=== PATIENT | male | born 2000 | race African-American/Black ===

== ENCOUNTER 2018-04-27 11:11 | Emergency (ER) | payer OTHER ==
[2018-04-27 11:17] VITALS: BP 117/66; PULSE 88; TEMP 98; BMI 28.1
--- NOTE | 2018-04-27 11:27 | PDOC ---
History of Present Illness - General Chief Complaint: Injury Stated Complaint: CUT FINGER Time Seen by Provider: 04/27/18 11:26 History Source: Patient Exam Limitations: No Limitations - History of Present Illness Initial Comments: 04/27/18 12:14 The patient is a 18-year-old male medical history who presents to the emergency department today for laceration to his foot. Patient states that he was in the shower last night he cut it on the side of shower. This happened at 11 PM last night. He states that he wanted to go to bed so he covered the wound presented to the ER today. Wound open for approximately 12 hours. He states he is up-to- date on his vaccinations including his tetanus shot. Denies fevers, chills, numbness and tingling and weakness to the affected extremities. Past History - Travel Traveled outside of the country in the last 30 days: No Close contact w/someone who was outside of country & ill: No - Past Medical History Allergies/Adverse Reactions: Allergies Allergy/AdvReac Type Severity Reaction Status Date / Time No Known Allergies Allergy Verified 04/27/18 11:17 COPD: No - Suicide/Smoking/Psychosocial Hx Smoking History: Never smoked Information on smoking cessation initiated: No Hx Alcohol Use: No Drug/Substance Use Hx: No Review of Systems - Review of Systems Able to Perform ROS?: Yes Comments:: 04/27/18 12:11 CONSTITUTIONAL: Absent: fever, chills, diaphoresis, generalized weakness, malaise, loss of appetite HEENT: Absent: rhinorrhea, nasal congestion, throat pain, throat swelling, difficulty swallowing, mouth swelling, ear pain, eye pain, visual Changes CARDIOVASCULAR: Absent: chest pain, loss of consciousness, palpitations, irregular heart rate, peripheral edema RESPIRATORY: Absent: cough, shortness of breath, dyspnea with exertion, orthopnea, wheezing, stridor, hemoptysis GASTROINTESTINAL: Absent: abdominal pain, abdominal distension, nausea, vomiting, diarrhea, constipation, melena, hematochezia GENITOURINARY: Absent: dysuria, frequency, urgency, hesitancy, hematuria, flank pain, genital pain MUSCULOSKELETAL: Absent: myalgia, arthralgia, joint swelling SKIN: Present: laceration to R foot Absent: rash, itching, pallor HEMATOLOGIC/IMMUNOLOGIC: Absent: easy bleeding, easy bruising, lymphadenopathy, frequent infections ENDOCRINE: Absent: unexplained weight gain, unexplained weight loss, heat intolerance, cold intolerance NEUROLOGIC: Absent: headache, focal weakness or paresthesias, dizziness, unsteady gait, seizure, mental status changes, bladder or bowel incontinence PSYCHIATRIC: Absent: anxiety, depression, suicidal or homicidal ideation, hallucinations. Is the patient limited Kazakh proficient: No *Physical Exam - Vital Signs Last Vital Signs Temp Pulse Resp BP Pulse Ox 98 F 88 19 117/66 99 04/27/18 11:15 04/27/18 11:15 04/27/18 11:15 04/27/18 11:15 04/27/18 11:15 - Physical Exam Comments: 04/27/18 12:11 GENERAL: Well developed, well nourished. Awake and alert. No acute distress. MUSCULOSKELETAL Normal range of motion at all joints. No bony deformities or tenderness. No CVA tenderness. EXTREMITIES: No cyanosis. No clubbing. No edema. No calf tenderness. SKIN: 2cm elliptical laceration to the top of the R lateral foot. Warm and dry. Normal capillary refill. No rashes. No jaundice. NEUROLOGICAL: Alert, awake, appropriate. Cranial nerves 2-12 intact. No deficits to light touch and temperature in face, upper extremities and lower extremities. No motor deficits in the in face, upper extremities and lower extremities. Normoreflexic in the upper and lower extremities. Normal speech. Toes are down- going bilaterally. Gait is normal without ataxia. PSYCHIATRIC: Cooperative. Good eye contact. Appropriate mood and affect. Moderate Sedation - Procedure Monitoring Vital Signs: Procedure Monitoring Vital Signs Temperature 98 F 04/27/18 11:15 Pulse Rate 88 04/27/18 11:15 Respiratory Rate 19 04/27/18 11:15 Blood Pressure 117/66 04/27/18 11:15 O2 Sat by Pulse Oximetry (%) 99 04/27/18 11:15 Procedures - Laceration/Wound Repair Right Lateral Foot Wound Length: to 2.5 cm Wound Explored: clean, no foreign body present Wound's Depth, Shape: superficial (elliptical) Irrigated w/ Saline: Yes Betadine Prep: Yes Anesthesia: 1% Lidocaine Amount of Anesthetic (ccs): 4 Wound Repaired With: Sutures Suture Size/Type: 4:0 Number of Sutures: 5 (simple interrupted) Sterile Dressing Applied: Yes Medical Decision Making - Medical Decision Making 04/27/18 12:17 The patient is a 18-year-old male with no past medical history who presents to the ER for laceration to the top of his right lateral foot. X-ray obtained. No broken bones in the right foot at this time. Wound cleaned under high pressure with normal saline. No foreign bodies identified. Laceration closed with sutures. Please see procedure note. DC home with laceration care instructions; patient instructed to return to the ER in 7-10 days to have the stitches removed. I discussed the physical exam findings, ancillary test results and final diagnoses with the patient. I answered all of the patient's questions. The patient was satisfied with the care received and felt comfortable with the discharge plan and treatment plan. The Patient agrees to follow up with the primary care physician/specialist within 24-72 hours. Return precautions were given. *DC/Admit/Observation/Transfer Diagnosis at time of Disposition: Laceration - Discharge Dispostion Disposition: HOME Condition at time of disposition: Stable Decision to Admit order: No - Referrals Referrals: Dimas Red MD [Staff Physician] - - Patient Instructions Printed Discharge Instructions: DI for Laceration Repair -- Simple Additional Instructions: You had your cut fixed today with stitches. Please return in 9 days to have your stitches removed. Avoid soaking the foot. Keep it dry when showering. Please keep the area clean and pat dry. You may use bacitracin once a day. You may take Tylenol or Motrin as needed for pain. Return to the emergency department sooner if you have area of redness around the site, purulent drainage, fevers, or have any changes in your symptoms. - Post Discharge Activity Forms/Work/School Notes: Back to School
== END 2018-04-27 12:32 | disposition home or self-care (01) ==
LOC: JERFT 11:11
PROC: 0HQMXZZ Repair Right Foot Skin, External Approach (ICD-10-PCS; principal; 2018-04-27)
DX: S91.311A Laceration without foreign body, right foot, initial encounter (principal); W22.8XXA Striking against or struck by other objects, initial encounter; Y93.E1 Activity, personal bathing and showering; Y92.012 Bathroom of single-family (private) house as the place of occurrence of the external cause; Y99.8 Other external cause status
CPT/HCPCS: 73630-TC-RT-FY; 99281-25

== ENCOUNTER 2018-05-08 12:45 | Emergency (ER) | payer OTHER ==
--- NOTE | 2018-05-08 13:05 | PDOC ---
Rapid Medical Evaluation Time Seen by Provider: 05/08/18 13:03 Medical Evaluation: Allergies Allergy/AdvReac Type Severity Reaction Status Date / Time No Known Allergies Allergy Verified 04/27/18 11:17 05/08/18 13:05 I have performed a brief in-person evaluation of this patient The patient present with a chief complaint of: stitiches removal Pertinent physical exam findings: NAD even and unlabored breathing I have ordered the following: stitiches removal The patient will proceed to the ED for further evaluation.
[2018-05-08 13:07] VITALS: BP 117/67; PULSE 93; TEMP 98.5; BMI 34.6
--- NOTE | 2018-05-08 14:03 | PDOC ---
History of Present Illness - General Chief Complaint: Suture/Staple Removal(Here) Stated Complaint: STITCHES REMOVED Time Seen by Provider: 05/08/18 13:03 - History of Present Illness Initial Comments: 05/08/18 14:00 18-year-old male presents for suture removal right foot from sutures that were placed 10 days ago. He hasn't had no sequelae since placement of sutures. Past History - Past Medical History Allergies/Adverse Reactions: Allergies Allergy/AdvReac Type Severity Reaction Status Date / Time No Known Allergies Allergy Verified 04/27/18 11:17 Home Medications: Ambulatory Orders NK [No Known Home Medication] 05/08/18 COPD: No - Suicide/Smoking/Psychosocial Hx Smoking History: Never smoked Have you smoked in the past 12 months: No Information on smoking cessation initiated: No Hx Alcohol Use: No Drug/Substance Use Hx: No Review of Systems - Review of Systems Integumentary: Yes: See HPI *Physical Exam - Vital Signs Last Vital Signs Temp Pulse Resp BP Pulse Ox 98.5 F 93 H 20 117/67 99 05/08/18 13:04 05/08/18 13:04 05/08/18 13:04 05/08/18 13:04 05/08/18 13:04 - Physical Exam Comments: 05/08/18 14:01 Right foot skin color and temperature are normal. The wound on the right foot is well-healed. [address] eschar has formed no indication of infection. No erythema normal skin color and temperature. Again wound is well- healed. No gross sensorimotor deficits. Medical Decision Making - Medical Decision Making 05/08/18 14:01 Using a needle school bus driver and an 11 blade, 5 sutures were removed the right foot without complication *DC/Admit/Observation/Transfer Diagnosis at time of Disposition: Visit for suture removal - Discharge Dispostion Disposition: HOME Condition at time of disposition: Stable Decision to Admit order: No - Referrals Referrals: Shiv Bravo MD [Primary Care Provider] - - Patient Instructions Printed Discharge Instructions: DI for Suture Removal Additional Instructions: He may wash the area with soap and water and leave it open to air. Cover it with a Band-Aid if you're in a shoe or sneaker. Do not submerge the area in water no baths hot tubs or pools until the wound becomes a scar. Return to the emergency room for any further issues and follow-up with your primary care physician for wound management going forward if you need to. Return to the emergency room if there is any indication of infection such as redness pain swelling or drainage from the wound. - Post Discharge Activity
== END 2018-05-08 14:05 | disposition home or self-care (01) ==
LOC: JERFT 12:45
DX: Z48.817 Encounter for surgical aftercare following surgery on the skin and subcutaneous tissue (principal); Z48.02 Encounter for removal of sutures
CPT/HCPCS: 99281-25

== ENCOUNTER 2018-11-13 19:30 | Emergency (ER) | payer OTHER ==
[2018-11-13 19:36] VITALS: BP 131/74; PULSE 104; TEMP 97.9; BMI 33.8
--- NOTE | 2018-11-13 23:55 | PDOC ---
History of Present Illness - General Chief Complaint: Pain Stated Complaint: ABD PAIN Time Seen by Provider: 11/13/18 23:55 History Source: Patient - History of Present Illness Initial Comments: 11/13/18 23:59 18 year old male with epigastric pain since yesterday.denies nausea, vomiting, diarrhea. denies chest pain. patient reports that he has been eating spicy food. 11/14/18 00:05 Past History - Past Medical History Allergies/Adverse Reactions: Allergies Allergy/AdvReac Type Severity Reaction Status Date / Time No Known Allergies Allergy Verified 11/13/18 19:37 Home Medications: Ambulatory Orders NK [No Known Home Medication] 05/08/18 COPD: No - Psycho Social/Smoking Cessation Hx Smoking History: Never smoked Have you smoked in the past 12 months: No Hx Alcohol Use: No Drug/Substance Use Hx: No Review of Systems - Review of Systems Able to Perform ROS?: Yes Is the patient limited Chinese proficient: No Constitutional: No: Symptoms Reported, See HPI, Chills, Diaphoresis, Fever, Loss of Appetite, Malaise, Night Sweats, Weakness, Weight Stable, Unintentional Wgt. Loss, Unexplained wgt Loss, Other ABD/GI: Yes: Abdominal cramping (epigastric area). No: Nausea, Vomiting *Physical Exam - Vital Signs Last Vital Signs Temp Pulse Resp BP Pulse Ox 97.9 F 104 H 18 131/74 99 11/13/18 19:34 11/13/18 19:34 11/13/18 19:34 11/13/18 19:34 11/13/18 19:34 - Physical Exam General Appearance: Yes: Appropriately Dressed Respiratory/Chest: positive: Lungs Clear, Normal Breath Sounds Cardiovascular: positive: Regular Rhythm, Tachycardia Gastrointestinal/Abdominal: positive: Normal Bowel Sounds, Tender (epigastric are) Extremity: positive: Normal Capillary Refill, Normal Inspection, Normal Range of Motion Integumentary: positive: Normal Color, Dry, Warm Neurologic: positive: Fully Oriented, Alert ED Progress Note - Progress Note Progress Note: 11/14/18 00:03 A: gastritis P: maalox Discharge - Discharge Information Problems reviewed: Yes Clinical Impression/Diagnosis: Gastritis Qualifiers: Gastritis type: unspecified gastritis Chronicity: acute Gastritis bleeding: without bleeding Qualified Code(s): K29.00 - Acute gastritis without bleeding - Follow up/Referral Referrals: Shiv Bravo MD [Primary Care Provider] - Call tomorrow - Patient Discharge Instructions Patient Printed Discharge Instructions: [place] Diet Additional Instructions: avoid spicy food take pepcid as prescribed follow up with your doctor as soon as possible. - Post Discharge Activity Work/Back to School Note: Back to School
--- NOTE | 2018-11-13 23:59 | PDOC ---
*Physical Exam - Vital Signs Last Vital Signs Temp Pulse Resp BP Pulse Ox 97.9 F 104 H 18 131/74 99 11/13/18 19:34 11/13/18 19:34 11/13/18 19:34 11/13/18 19:34 11/13/18 19:34 Medical Decision Making - Medical Decision Making 11/13/18 23:59 Patient seen by the advanced practice provider under my direct supervision. Ancillary testing reviewed as necessary. I agree with plan as outlined by the advanced practice provider. Discharge - Discharge Information Problems reviewed: Yes Clinical Impression/Diagnosis: Gastritis Qualifiers: Gastritis type: unspecified gastritis Chronicity: acute Gastritis bleeding: without bleeding Qualified Code(s): K29.00 - Acute gastritis without bleeding - Follow up/Referral Referrals: Shiv Bravo MD [Primary Care Provider] - Call tomorrow - Patient Discharge Instructions Patient Printed Discharge Instructions: [place] Diet Additional Instructions: avoid spicy food take pepcid as prescribed follow up with your doctor as soon as possible. - Post Discharge Activity Work/Back to School Note: Back to School
[2018-11-14] MEDS ORDERED: MAG HYDROX/AL HYDROX/SIMETH 30 ML UNIT-DOSE CUP PO ONE
[2018-11-14] MEDS ORDERED: RANITIDINE HCL 150 MG TABLET (FP) PO ONE (00:04)
[2018-11-14] MEDS ORDERED: MAG HYDROX/AL HYDROX/SIMETH 30 ML UNIT-DOSE CUP ONE (00:58)
== END 2018-11-14 02:16 | disposition home or self-care (01) ==
LOC: JER 19:30
DX: K29.00 Acute gastritis without bleeding (principal)
CPT/HCPCS: 99282-25

== ENCOUNTER 2018-11-14 16:16 | Emergency (ER) | payer OTHER ==
--- NOTE | 2018-11-14 16:36 | PDOC ---
Rapid Medical Evaluation Time Seen by Provider: 11/14/18 16:31 Medical Evaluation: Allergies Allergy/AdvReac Type Severity Reaction Status Date / Time No Known Allergies Allergy Verified 11/13/18 19:37 11/14/18 16:31 I performed a brief in-person evaluation of this patient. Healthy 18-year-old male with epigastric/LUQ, loss of appetite pain since Tuesday. No nausea/vomiting/diarrhea/constipation. Seen in ED last night, given Pepcid/Maalox without relief. Now with fevers/chills, dysuria. No surgeries. Alert, oriented, no distress. LUQ tenderness. No tonsillar swelling/exudates. *Temp 101.3 I have ordered the following: CBC, CMP, lipase UA/culture Patient will proceed to the ED for further evaluation. Discharge Disposition - Diagnosis Fever, Abdominal pain - Referrals - Patient Instructions - Post Discharge Activity
[2018-11-14 16:37] VITALS: BMI 32.8
[2018-11-14] MEDS ORDERED: ACETAMINOPHEN 325 MG TABLET (FP) PO ONE (16:38)
[2018-11-14 17:38] LABS: BASO % 0.4 % (0-2.0); EOS % 0.2 % (0-4.5); HEMATOCRIT 44.3 % (35.4-49); HEMOGLOBIN 14.5 GM/dL (11.7-16.9); LYMPH % 11.3 % (8-40); MCH 30.3 pg (25.7-33.7); MCHC 32.8 g/dl (32.0-35.9); MEAN CELL VOLUME 92.3 fl (80-96); MEAN PLT VOLUME 7.6 fl (7.5-11.1); MONO % 9.8 % (3.8-10.2); NEUT % 78.3 % (42.8-82.8); PLATELET COUNT 352 K/MM3 (134-434); RDW 12.1 % (11.9-15.9); WHITE BLOOD COUNT 12.2 K/mm3 (4.0-10.0)
[2018-11-14 17:52] LABS: EPI CELLS 0.3 /HPF (0-5/HPF); HYALINE CASTS 2 /lpf (0-8); PH,URINE 6.5 (5.0-8.0); URINE APPEARANCE CLOUDY; URINE BACTERIA 5676.5 /hpf (NEGATIVE); URINE BILIRUBIN NEGATIVE (NEGATIVE); URINE COLOR YELLOW; URINE GLUCOSE (UA) NEGATIVE (NEGATIVE); URINE KETONE 1+ (NEGATIVE); URINE LEUK ESTERASE 3+ (NEGATIVE); URINE NITRITE NEGATIVE (NEGATIVE); URINE PROTEIN 1+ (NEGATIVE); URINE RBC 23 /hpf (0-4); URINE UROBILINOGEN 0.2 mg/dL (0.2-1.0); URINE WBC 335 /hpf (0-5)
[2018-11-14 17:58] LABS: ALBUMIN 3.8 g/dl (3.4-5.0); BILIRUBIN,TOTAL 1.1 mg/dL (0.2-1); CALCIUM 9.5 mg/dL (8.5-10.1); CREATININE 1.1 mg/dL (0.55-1.3); POTASSIUM 4.5 mmol/L (3.5-5.1); TOT PROT 8.2 g/dl (6.4-8.2)
[2018-11-14] MEDS ORDERED: ACETAMINOPHEN 1000 MG/100 ML VIAL (NON FORMULARY) IVPB ONE (18:06)
[2018-11-14] MEDS ORDERED: CEFTRIAXONE 1,000 MG in DEXTROSE 5%-WATER - 50 ML IVPB ONE (18:06)
--- NOTE | 2018-11-14 18:13 | PDOC ---
History of Present Illness - General Chief Complaint: Pain, Acute Stated Complaint: ABD PAIN Time Seen by Provider: 11/14/18 16:31 History Source: Patient Exam Limitations: No Limitations - History of Present Illness Initial Comments: 11/14/18 18:08 18 yo M no PMH presenting with abdominal pain and fever. Notably, patient was seen yesterday for abdominal pain, was afebrile at that time, treated for presumed gastritis and sent home. Developed fever this morning, 100.8 at home, 101.3 here. States that his symptoms first began on Tuesday. Specifically denies N/V, constipation/diarrhea. Does complain of stinging with urination and states that he has been peeing every 15 minutes or so. Denies flank pain or hematuria. Past History - Past Medical History Allergies/Adverse Reactions: Allergies Allergy/AdvReac Type Severity Reaction Status Date / Time No Known Allergies Allergy Verified 11/13/18 19:37 Home Medications: Ambulatory Orders Sulfamethoxazole/Trimethoprim [Bactrim Ds Tablet] 1 each PO BID 10 Days #20 tablet 11/14/18 COPD: No - Immunization History Immunization Up to Date: No - Psycho Social/Smoking Cessation Hx Smoking History: Never smoked Have you smoked in the past 12 months: No Information on smoking cessation initiated: No Hx Alcohol Use: No Drug/Substance Use Hx: No Review of Systems - Review of Systems Able to Perform ROS?: Yes Constitutional: Yes: Chills, Fever HEENTM: No: Recent change in vision, Hearing Loss, Difficulty Swallowing Respiratory: No: Cough, Orthopnea, Shortness of Breath Cardiac (ROS): No: Chest Pain, Irregular Heart Rate, Lightheadedness, Palpitations, Syncope, Chest Tightness ABD/GI: No: Abdominal Distended, Constipated, Diarrhea, Nausea, Vomiting : Yes: Burning, Frequency. No: Discharge, Flank Pain, Hematuria Musculoskeletal: No: Back Pain, Muscle Weakness Neurological: No: Headache, Numbness, Tingling *Physical Exam - Vital Signs Last Vital Signs Temp Pulse Resp BP Pulse Ox 101.3 F H 116 H 20 124/75 100 11/14/18 16:34 11/14/18 16:34 11/14/18 16:34 11/14/18 16:34 11/14/18 16:34 - Physical Exam Comments: 11/14/18 18:13 Gen: well-developed, appears distressed Neuro: AAOX4, CN II-XII intact, FTN intact HEENT: atraumatic, normocephalic Neck: trachea midline, supple CV: regular rhythm, tachycardic Pulm: CTA b/l, no wheezing Abd: soft, TTP in periumbilical region MSK: full ROM, pulses intact Extr: no edema, no deformities Skin: hot, dry ED Treatment Course - LABORATORY CBC & Chemistry Diagram: 11/14/18 17:08 11/14/18 17:08 - ADDITIONAL ORDERS Additional order review: Laboratory Results 11/14/18 11/14/18 17:08 17:08 Sodium 136 Potassium 4.5 Chloride 101 Carbon Dioxide 30 Anion Gap 5 L BUN 12.0 Creatinine 1.1 Est GFR (CKD-EPI)AfAm 111.41 Est GFR (CKD-EPI)NonAf 96.13 Random Glucose 87 Calcium 9.5 Total Bilirubin 1.1 H AST 25 ALT 43 Alkaline Phosphatase 104 Total Protein 8.2 Albumin 3.8 Lipase 78 Urine Color Yellow Urine Appearance Cloudy Urine pH 6.5 Ur Specific [place] 1.013 Urine Protein 1+ H Urine Glucose (UA) Negative Urine Ketones 1+ H Urine Blood 2+ H Urine Nitrite Negative Urine Bilirubin Negative Urine Urobilinogen 0.2 Ur Leukocyte Esterase 3+ H Urine WBC (Auto) 335 Urine RBC (Auto) 23 Urine Casts (Auto) 2 U Epithel Cells (Auto) 0.3 Urine Bacteria (Auto) 5676.5 11/14/18 17:08 RBC 4.80 MCV 92.3 MCHC 32.8 RDW 12.1 MPV 7.6 Neutrophils % 78.3 Lymphocytes % 11.3 Monocytes % 9.8 Eosinophils % 0.2 Basophils % 0.4 - RADIOLOGY Radiology Studies Ordered: Category Date Time Status SPIRAL- RENAL-STONE CT [CT] Stat CT Scan 11/14/18 18:06 Ordered Medical Decision Making - Medical Decision Making 11/14/18 18:15 Patient with UTI. Unusual for male with no apparent predisposing factors. - ceftriaxone - Ofirmev - spiral CT r/o obstruction - likely dc home on abx 11/14/18 20:46 CT scan without evidence of kidney stones, no prostate enlargement. Appears to have mild ileus. Will dc patient for UTI. Discharge - Discharge Information Problems reviewed: Yes Clinical Impression/Diagnosis: Fever, Abdominal pain, UTI (urinary tract infection) Condition: Stable Disposition: HOME - Admission No - Additional Discharge Information Prescriptions: Sulfamethoxazole/Trimethoprim [Bactrim Ds Tablet] 1 each PO BID 10 Days #20 tablet - Follow up/Referral - Patient Discharge Instructions Patient Printed Discharge Instructions: DI for Urinary Tract Infection (UTI), DI for Ileus Additional Instructions: You were seen with abdominal pain and fever. You were found to have a urinary tract infection. Please take your Bactrim twice a day for 14 days. You were also seen to have mild constipation. Please take primarily liquid diet for the next few days, and take it slow when building up. Take acetaminophen as needed for pain. Return to the ED if you develop worsening abdominal pain or fevers. - Post Discharge Activity
--- NOTE | 2018-11-14 18:17 | PDOC ---
Documentation entered by Noemy Haywood SCRIBE, acting as scribe for Rosario Molina MD. Rosario Molina MD: This documentation has been prepared by the Yobany lees Adrianna, SCRIBE, under my direction and personally reviewed by me in its entirety. I confirm that the documentation accurately reflects all work, treatment, procedures, and medical decision making performed by me. Attending Attestation - Resident Resident Name: Terrence Membreno - ED Attending Attestation I have performed the following: I have examined & evaluated the patient, The case was reviewed & discussed with the resident, I agree w/resident's findings & plan, Exceptions are as noted - HPI HPI: The patient is a 18 year old male, with no significant PMH, who presents to the ED for evaluation of abdominal pain for 2 days. Pain is prominent at the epigastric and LUQ region. He was seen in the ED last night for the same complaint, and given Pepcid and Maalox without any relief. Patient endorses new onset fever, chills, and dysuria. Denies nausea, vomit, diarrhea, or constipation. Allergies: NKA, NKDA Surgical History: None reported Social History: Denies EtOH, tobacco, or illicit drug use - Physicial Exam PE: 11/14/18 18:18 wnwd 18 yo male with fever and dysuria head ncat neck supple lungs cta b/l cvs tachycardia abd mild periumbilical discomfort but no rebound and no guarding No cva tenderness skin warm and dry neuro axox3,ambulatory - Medical Decision Making 11/14/18 18:16 pt found to be febrile and a UA positive for UTI started on antibiotics
[2018-11-14] MEDS ORDERED: CEFTRIAXONE 1 GM/50 ML BAG ONE (18:57)
[2018-11-14] MEDS ORDERED: ACETAMINOPHEN INJECTION 100 ML IVPB ONE (18:57)
[2018-11-14 20:38] LABS: YEAST NONE SEEN (NEGATIVE)
[2018-11-14] MEDS ORDERED: ACETAMINOPHEN 500 MG TABLET (FP) PO ONE (21:02)
[2018-11-14] MEDS ORDERED: ACETAMINOPHEN 325 MG TABLET (FP) ONE (21:03)
[2018-11-14] MEDS ORDERED: KETOROLAC TROMETHAMINE 30 MG/1 ML VIAL ONE (21:06)
[2018-11-14] MEDS ORDERED: KETOROLAC TROMETHAMINE 30 MG/1 ML VIAL IM ONE (21:09)
[2018-11-14 21:42] VITALS: BP 118/72; PULSE 95; TEMP 98.5
== END 2018-11-14 21:00 | disposition home or self-care (01) ==
LOC: JER 16:16
PROC: 3E0233Z Introduction of Anti-inflammatory into Muscle, Percutaneous Approach (ICD-10-PCS; principal; 2018-11-14)
PROC: 3E03329 Introduction of Other Anti-infective into Peripheral Vein, Percutaneous Approach (ICD-10-PCS; 2018-11-14)
PROC: 3E033NZ Introduction of Analgesics, Hypnotics, Sedatives into Peripheral Vein, Percutaneous Approach (ICD-10-PCS; 2018-11-14)
DX: N39.0 Urinary tract infection, site not specified (principal); K56.7 Ileus, unspecified
CPT/HCPCS: 36415; 74176-TC; 80053; 81003; 83690; 85025; 87086; 87186; 96365; 96372; 96375; 99284-25; J0131

== ENCOUNTER 2018-11-15 22:05 | Inpatient (IN) | payer OTHER ==
--- NOTE | 2018-11-15 23:21 | PDOC ---
*Physical Exam - Vital Signs Last Vital Signs Temp Pulse Resp BP Pulse Ox 100.1 F H 106 H 18 107/65 95 11/15/18 22:10 11/15/18 22:10 11/15/18 22:10 11/15/18 22:10 11/15/18 22:10 ED Treatment Course - LABORATORY CBC & Chemistry Diagram: 11/16/18 00:18 11/16/18 00:18 Medical Decision Making - Medical Decision Making 11/15/18 23:21 Patient seen by the advanced practice provider under my direct supervision. Ancillary testing reviewed as necessary. I agree with plan as outlined by the advanced practice provider. Discharge - Discharge Information Problems reviewed: Yes Clinical Impression/Diagnosis: UTI (urinary tract infection) - Follow up/Referral Referrals: Shiv Bravo MD [Primary Care Provider] - - Patient Discharge Instructions - Post Discharge Activity
[2018-11-15] MEDS ORDERED: ACETAMINOPHEN 1000 MG/100 ML VIAL (NON FORMULARY) IVPB ONE (23:33)
[2018-11-15] MEDS ORDERED: SODIUM CHLORIDE 1,000 ML IV STA (23:33)
[2018-11-15] MEDS ORDERED: METOCLOPRAMIDE HCL INJECTION 10 MG/2 ML VIAL IVPUSH ONE (23:35)
--- NOTE | 2018-11-15 23:36 | PDOC ---
History of Present Illness - General Chief Complaint: Pain Stated Complaint: STOMACH PAIN Time Seen by Provider: 11/15/18 23:16 History Source: Patient, Old Records Exam Limitations: No Limitations - History of Present Illness Travel History: No Initial Comments: 11/15/18 23:39 HISTORY OF PRESENT ILLNESS: 18-year-old male diagnosed with urinary tract infection on 11/14/2018 presents to the emergency department for evaluation of diffuse abdominal pain. Patient was discharged on Bactrim was told by his primary doctor to skip the evening dose and return to the emergency department for potential admission. Patient is concerned reports he has not moved his bowels in 5 days and took multiple laxatives and enemas throughout the day today without any bowel movement. Patient reports having a temperature at home for which he took Tylenol. Reports dysuria and urinary frequency. No recent travel or sick contacts. PAST MEDICAL HISTORY: Denies past medical history SURGICAL HISTORY: Denies ALLERGIES: No known drug allergies REVIEW OF SYSTEMS General/Constitutional: Denies fever or chills. Denies weakness, weight change. HEENT: Denies change in vision. Denies ear pain or discharge. Denies sore throat. Cardiovascular: Denies chest pain or shortness of breath. Respiratory: Denies cough, wheezing, or hemoptysis. Gastrointestinal: See HPI Genitourinary: See HPI Musculoskeletal: Denies joint or muscle swelling or pain. Denies neck or back pain. Skin and breasts: Denies rash or easy bruising. Neurologic: Denies headache, vertigo, loss of consciousness, or loss of sensation. Psychiatric: Denies depression or anxiety. Endocrine: Denies increased thirst. Denies abnormal weight change. Hematologic/Lymphatic: Denies anemia, easy bleeding, or history of blood clots. Allergic/Immunologic: Denies hives or skin allergy. Denies latex allergy. PHYSICAL EXAM General Appearance: Well-appearing, appropriately dressed. No apparent distress , no intoxication. HEENT: EOMI, PERRLA, normal ENT inspection, normal voice, TMs normal, pharynx normal. No conjunctival pallor. No photophobia, scleral icterus. Neck: Supple. Trachea midline. No tenderness, rigidity, carotid bruit, stridor , lymphadenopathy, or thyromegaly. Respiratory/Chest: Lungs CTAB. No shortness of breath, chest tenderness, respiratory distress, accessory muscle use. No crackles, rales, rhonchi, stridor , wheezing, dullness Cardiovascular: RRR. S1, S2. No JVD, murmur, bradycardia, tachycardia. Vascular Pulses: Dorsalis-Pedis (R): 2+, Dorsalis-Pedis (L): 2+ Gastrointestinal/Abdominal: Hyperactive bowel sounds. Abdomen soft, non- distended. Diffuse tenderness with guarding. No rebound tenderness. No organomegaly, pulsatile mass, hernia, hepatomegaly, splenomegaly. Lymphatic: No adenopathy, tenderness. Musculoskeletal/Extremities: Normal inspection. FROM of all extremities, normal capillary refill. Pelvis Stable. No CVA tenderness. No tenderness to extremities, pedal edema, swelling, erythema or deformity. Integumentary: Appropriate color, dry, warm. No cyanosis, erythema, jaundice or rash Neurologic: grounds maintenance manager II-XII intact. Fully oriented, alert. Appropriate mood/affect. Motor strength 5/5. No appreciable EOM palsy, facial droop or sensory deficit. Past History - Past Medical History Allergies/Adverse Reactions: Allergies Allergy/AdvReac Type Severity Reaction Status Date / Time No Known Allergies Allergy Verified 11/15/18 22:12 Home Medications: Ambulatory Orders Cefuroxime Axetil [Ceftin -] 500 mg PO Q12H #20 tablet 11/17/18 COPD: No - Immunization History Immunization Up to Date: No - Psycho Social/Smoking Cessation Hx Smoking History: Never smoked Have you smoked in the past 12 months: No Hx Alcohol Use: No Drug/Substance Use Hx: No *Physical Exam - Vital Signs Last Vital Signs Temp Pulse Resp BP Pulse Ox 100.1 F H 106 H 18 107/65 95 11/15/18 22:10 11/15/18 22:10 11/15/18 22:10 11/15/18 22:10 11/15/18 22:10 ED Treatment Course - LABORATORY CBC & Chemistry Diagram: 11/17/18 07:33 11/17/18 07:33 - RADIOLOGY Radiology Studies Ordered: Category Date Time Status ABDOMEN & PELVIS CT WITH CONTR [CT] Stat CT Scan 11/15/18 23:34 Ordered Medical Decision Making - Medical Decision Making 11/15/18 23:41 A/P: 18-year-old male with known urinary tract infection with CT scan performed 11/14 which revealed mild ileus Given hyperactive bowel sounds and diffuse abdominal tenderness I will repeat CT scan with p.o. and IV contrast to look for bowel obstruction. CBC, CMP, lipase Tylenol 1 g IV now Reglan 10 mg IV now Reassessed 11/16/18 00:19 Patient's primary doctor contacted the emergency department and requested patient be admitted for IV antibiotics for possible pyelonephritis. Will cancel CT scan after the case has been discussed with attending physician. Blood cultures Ceftriaxone 1 g IV now 11/16/18 00:20 11/16/18 00:58 Laboratory Tests 11/16/18 11/16/18 00:18 00:18 WBC 11.0 H Hgb 13.3 Hct 39.9 Plt Count 306 Neutrophils % 75.2 Lymphocytes % 11.1 Monocytes % 12.7 H Eosinophils % 0.7 D Basophils % 0.3 Sodium 136 Potassium 4.5 Chloride 100 Carbon Dioxide 28 BUN 11.8 Creatinine 1.1 Est GFR (CKD-EPI)AfAm 111.41 Random Glucose 90 I will contact hospitalist for admission for IV antibiotics. 11/16/18 01:32 11/16/18 01:36 Case has been discussed with Dr. Arellano of the hospitalist service. Accepts for admission to [facility] under Dr. Phelps. Discharge - Discharge Information Problems reviewed: Yes Clinical Impression/Diagnosis: UTI (urinary tract infection) Qualifiers: Urinary tract infection type: acute pyelonephritis Qualified Code(s): N10 - Acute pyelonephritis Condition: Improved Disposition: HOME - Admission Yes - Follow up/Referral - Patient Discharge Instructions - Post Discharge Activity
[2018-11-15] MEDS ORDERED: ACETAMINOPHEN INJECTION 100 ML IVPB ONE (23:44)
[2018-11-15] MEDS ORDERED: METOCLOPRAMIDE HCL INJECTION 10 MG/2 ML VIAL ONE (23:44)
[2018-11-16] MEDS ORDERED: CEFTRIAXONE 1 GM in DEXTROSE 5%-WATER - 100 ML IVPB ONE (00:23)
[2018-11-16 00:28] LABS: BASO % 0.3 % (0-2.0); EOS % 0.7 % (0-4.5); HEMATOCRIT 39.9 % (35.4-49); HEMOGLOBIN 13.3 GM/dL (11.7-16.9); LYMPH % 11.1 % (8-40); MCH 30.7 pg (25.7-33.7); MCHC 33.4 g/dl (32.0-35.9); MEAN PLT VOLUME 7.3 fl (7.5-11.1); MONO % 12.7 % (3.8-10.2); NEUT % 75.2 % (42.8-82.8); PLATELET COUNT 306 K/MM3 (134-434); RBC 4.34 M/mm3 (4.00-5.60); RDW 12.1 % (11.9-15.9)
[2018-11-16 00:55] LABS: ALBUMIN 3.5 g/dl (3.4-5.0); BILIRUBIN,TOTAL 1.3 mg/dL (0.2-1); BLOOD UREA NITROGEN 11.8 mg/dL (7-18); CALCIUM 9.1 mg/dL (8.5-10.1); CREATININE 1.1 mg/dL (0.55-1.3); POTASSIUM 4.5 mmol/L (3.5-5.1); TOT PROT 7.8 g/dl (6.4-8.2)
--- NOTE | 2018-11-16 01:41 | PN ---
Teaching Attending Note Name of Resident: Jay Arellano ATTENDING PHYSICIAN STATEMENT I saw and evaluated the patient. I reviewed the resident's note and discussed the case with the resident. I agree with the resident's findings and plan as documented. SUBJECTIVE: Patient is a 18 year old man with no significant PMH who was diagnosed with urinary tract infection on 11/14/2018, now presents to the ER for evaluation of diffuse abdominal pain. Patient was discharged on Bactrim was told by his primary doctor to skip the evening dose and return to the ER for potential admission. Patient was also in the ER on 11/13/[address] abdomen on 11/14/18 showed mild ileus. Patient has not moved his bowels in 5 days and took multiple laxatives and enemas today without any bowel movement. Patient reports having a fever at home for which he took Tylenol. Reports dysuria and urinary frequency. Denies recent travel or sick contacts. Denies chills, weakness, weight change, chest pain, headache or shortness of breath. No FH of significant medical illness. OBJECTIVE: Alert Vital Signs Period Temp Pulse Resp BP Sys/Roche Pulse Ox Last 24 Hr 100.1 F 106 18 107/65 95 HEENT: No Jaundice, eye redness or discharge, PERRLA, EOMI. Normocephalic, atraumatic. External ears are normal and hearing is grossly intact. No nasal discharge. Neck: Supple, nontender. No palpable adenopathy or thyromegaly. No JVD Chest: Good effort. Clear to auscultation and percussion. Heart: Regular. No S3, rub or murmur Abdomen: Not distended, soft, diffuse tenderness and no HSM. No rebound or guarding. Normal bowel sounds. Ext: Peripheral pulses intact. No leg edema. Skin: Warm and dry. No petechiae, rash or ecchymosis. Neuro: Alert. Oriented x3. CN 2-12 grossly intact. Sensation grossly intact in all four extremities and DTR are symmetric. Psych: Appropriate mood and affect. Good insight. Home Medications Medication Instructions Recorded Sulfamethoxazole/Trimethoprim 1 each PO BID 10 Days #20 tablet 11/14/18 [Bactrim Ds Tablet] Laboratory Tests 11/16/18 11/16/18 00:18 00:18 WBC 11.0 H RBC 4.34 Hgb 13.3 Hct 39.9 MCV 92.0 MCH 30.7 MCHC 33.4 RDW 12.1 Plt Count 306 MPV 7.3 L Absolute Neuts (auto) 8.3 H Neutrophils % 75.2 Lymphocytes % 11.1 Monocytes % 12.7 H Eosinophils % 0.7 D Basophils % 0.3 Nucleated RBC % 0 Sodium 136 Potassium 4.5 Chloride 100 Carbon Dioxide 28 Anion Gap 7 L BUN 11.8 Creatinine 1.1 Est GFR (CKD-EPI)AfAm 111.41 Est GFR (CKD-EPI)NonAf 96.13 Random Glucose 90 Calcium 9.1 Total Bilirubin 1.3 H AST 23 ALT 41 Alkaline Phosphatase 89 Total Protein 7.8 Albumin 3.5 Lipase 73 ASSESSMENT AND PLAN: 1. Pyelonephritis - Urinalysis from 11/14/18 showed UTI, but the urine culture is thus far negative. Sepsis workup done. Will get lactic acid, treat with IV Rocephin and IV NS. Will contact his PCP during the day to find out if he has any documented risk factor for pyelonephritis/UTI. CT scan on 11/14/18 showed mild ileus. In view of current constipation and abdominal findings, will repeat CT abdomen/pelvis - but now with contrast. Based on CT results, will treat constipation with Fleet enema and Miralax. 2. DVT prophylaxis - Lovenox 40 mg SQ q 24 hours. 3. Advance directives - Full code
[2018-11-16] MEDS ORDERED: cefTRIAXone SODIUM 1 GM VIAL ONE ×2 (03:58→13:05)
--- NOTE | 2018-11-16 04:19 | HP ---
CHIEF COMPLAINT: PCP: Dr. Bravo HISTORY OF PRESENT ILLNESS: 18 y/o/m without any significant past sent in by his PCP for admission for pyelonephritis. Patient was seen here on 11/13 for abd pain, was diagnosed with epigastritis and sent home with Maalox which provided mild improvement. Patient returned on 11/14 for continuing pain and was diagnosed with a UTI and prescribed Bactrim. Patient initially started to have fevers on 12/15, T max of 101.3F. He still had fevers yesterday and was having some pain, after speaking with his PCP patient was told to return to the ER for continuing fever and pain. Patient states his abd pain has improved. He was having a stinging sensation with urination which improved after he stated to take Bactrim. Patient has not had a BM for 6 days. He states he normally goes everyday or every other day and has normal bowel movements. He denies any blood in his stools or straining during bowel movements. He denies any chest pain, SOB, chills, sore throat, changes in vision. Patient denies ever having a UTI in the past. ER course was notable for: (1) One does of Ceftriaxone given (2) Spoke with Dr. Bravo, wanted patient admitted for pyelonephritis Recent Travel: none PAST MEDICAL HISTORY: none PAST SURGICAL HISTORY: none Social History: Smoking: denies Alcohol: denies Drugs: denies Denies ever being sexually active Allergies No Known Allergies Allergy (Verified 11/15/18 22:12) HOME MEDICATIONS: Home Medications Medication Instructions Recorded Sulfamethoxazole/Trimethoprim 1 each PO BID 10 Days #20 tablet 11/14/18 [Bactrim Ds Tablet] REVIEW OF SYSTEMS Constitutional: fever. denies weakness, loss of appetite, sweating HEENT: denies sore throat, vision changes, nasal congestion Cardio: denies palpitations, chest pain, lightheadedness Resp: denies SOB, wheezing GI: denies abd pain, nausea, vomiting, constipation, bloody stools : dysuria MSK: denies joint pain, back pain SKIN: denies rashes Neuro: denies loss of consciousness, numbness, tingling, headache PHYSICAL EXAMINATION Vital Signs - 24 hr 11/15/18 22:10 Temperature 100.1 F H Pulse Rate 106 H Respiratory 18 Rate Blood Pressure 107/65 O2 Sat by Pulse 95 Oximetry (%) GENERAL: Awake, alert, and fully oriented, in no acute distress. HEAD: Normal with no signs of trauma. EYES: PERRL, EOMI EARS, NOSE, THROAT: Ears normal, nares patent, oropharynx clear without exudates. Moist mucous membranes. NECK: Normal range of motion, supple without lymphadenopathy, JVD, or masses. LUNGS: Breath sounds equal, clear to auscultation bilaterally. No wheezes, and no crackles. No accessory muscle use. HEART: Regular rate and rhythm, normal S1 and S2 without murmur, rub or gallop. ABDOMEN: Soft, nontender, not distended, normoactive bowel sounds, no guarding, no rebound, no masses. No hepatomegaly or splenomegaly. MUSCULOSKELETAL: Normal range of motion at all joints. No bony deformities or tenderness. No CVA tenderness. UPPER EXTREMITIES: 2+ pulses, warm, well-perfused. No cyanosis. No clubbing. No peripheral edema. LOWER EXTREMITIES: 2+ pulses, warm, well-perfused. No calf tenderness. No peripheral edema. NEUROLOGICAL: Normal speech, 5/5 strength upper and lower extremities PSYCHIATRIC: Cooperative. Good eye contact. Appropriate mood and affect. SKIN: Warm, dry, normal turgor, no rashes or lesions noted, normal capillary refill. Laboratory Results - last 24 hr 11/16/18 11/16/18 00:18 00:18 WBC 11.0 H RBC 4.34 Hgb 13.3 Hct 39.9 MCV 92.0 MCH 30.7 MCHC 33.4 RDW 12.1 Plt Count 306 MPV 7.3 L Absolute Neuts (auto) 8.3 H Neutrophils % 75.2 Lymphocytes % 11.1 Monocytes % 12.7 H Eosinophils % 0.7 D Basophils % 0.3 Nucleated RBC % 0 Sodium 136 Potassium 4.5 Chloride 100 Carbon Dioxide 28 Anion Gap 7 L BUN 11.8 Creatinine 1.1 Est GFR (CKD-EPI)AfAm 111.41 Est GFR (CKD-EPI)NonAf 96.13 Random Glucose 90 Calcium 9.1 Total Bilirubin 1.3 H AST 23 ALT 41 Alkaline Phosphatase 89 Total Protein 7.8 Albumin 3.5 Lipase 73 Imaging: CT abd&pelvis w/ contrast - suspected left pyelonephritis ASSESSMENT/PLAN: 18 y/o/m without any significant past sent in by his PCP for admission for pyelonephritis. No history of UTI. 1)Acute complicated UTI - patient diagnosed on 11/14, started on Bactrim and took one dose -CT abd&pelvis with contrast shows suspected left pyelnephritis -one dose of ceftriaxone given in ED, continue ceftriaxone -ID consulted, Dr. Mauro -contact PCP to confirm patient has no history of UTIs or other medical conditions 2)Constipation - patient has not had BM since 11/10 -patient not complaining of abd pain currently -CT abd&pelvis on 11/14 showed mild ileus, CT abd&pelvis w/contrast today without evidence of SBO -monitor and consider laxatives 3)Prophylaxis -SCDs 4)FEN -oral hydration -regular diet 5)Dispo -admitted to med/surg Visit type - Emergency Visit Emergency Visit: Yes ED Registration Date: 11/16/18 Care time: The patient presented to the Emergency Department on the above date and was hospitalized for further evaluation of their emergent condition. - New Patient This patient is new to me today: Yes Date on this admission: 11/16/18 - Critical Care Critical Care patient: No ATTENDING PHYSICIAN STATEMENT I saw and evaluated the patient. I reviewed the resident's note and discussed the case with the resident. I agree with the resident's findings and plan as documented. SUBJECTIVE: OBJECTIVE: ASSESSMENT AND PLAN:
[2018-11-16] MEDS ORDERED: SODIUM CHLORIDE 1,000 ML IV SCH (06:00)
[2018-11-16 07:01] VITALS: BMI 34.2
[2018-11-16 08:52] LABS: HEMOGLOBIN 13.5 GM/dL (11.7-16.9); MCH 31.1 pg (25.7-33.7); MCHC 33.8 g/dl (32.0-35.9); MEAN PLT VOLUME 7.5 fl (7.5-11.1); PLATELET COUNT 294 K/MM3 (134-434); RBC 4.35 M/mm3 (4.00-5.60); RDW 11.9 % (11.9-15.9); WHITE BLOOD COUNT 7.9 K/mm3 (4.0-10.0)
--- NOTE | 2018-11-16 09:52 | PN ---
Teaching Attending Note Name of Resident: Kitty Severino ATTENDING PHYSICIAN STATEMENT I saw and evaluated the patient. I reviewed the resident's note and discussed the case with the resident. I agree with the resident's findings and plan as documented. SUBJECTIVE: Patient is comfortable with no acute distress. OBJECTIVE: Vital Signs Temperature 98.7 F 11/16/18 05:13 Pulse Rate 89 11/16/18 05:13 Respiratory Rate 18 11/16/18 07:03 Blood Pressure 110/67 11/16/18 05:13 O2 Sat by Pulse Oximetry (%) 98 11/16/18 07:03 GENERAL: The patient is awake, alert, and fully oriented, in no acute distress. HEAD: Normal with no signs of trauma. EYES: PERRL, extraocular movements intact, sclera anicteric, conjunctiva clear. ENT: Ears normal, oropharynx clear without exudates, moist mucous membranes. NECK: Trachea midline, full range of motion, supple. LUNGS: Breath sounds equal, clear to auscultation bilaterally, no wheezes, no crackles, no accessory muscle use. HEART: Regular rate and rhythm, S1, S2 without murmur, rub or gallop. ABDOMEN: Soft, NT,ND, normoactive bowel sounds, no guarding, no rebound, no hepatosplenomegaly, no masses. EXTREMITIES: 2+ pulses, warm, well-perfused, no edema. NEUROLOGICAL: Cranial nerves II through XII grossly intact. Normal speech, gait not observed. PSYCH: Normal mood, normal affect. SKIN: Warm, dry, normal turgor, no rashes or lesions noted CBCD WBC 7.9 K/mm3 (4.0-10.0) 11/16/18 07:55 RBC 4.35 M/mm3 (4.00-5.60) 11/16/18 07:55 Hgb 13.5 GM/dL (11.7-16.9) 11/16/18 07:55 Hct 40.0 % (35.4-49) 11/16/18 07:55 MCV 92.0 fl (80-96) 11/16/18 07:55 MCHC 33.8 g/dl (32.0-35.9) 11/16/18 07:55 RDW 11.9 % (11.9-15.9) 11/16/18 07:55 Plt Count 294 K/MM3 (134-434) 11/16/18 07:55 MPV 7.5 fl (7.5-11.1) 11/16/18 07:55 CMP Sodium 136 mmol/L (136-145) 11/16/18 00:18 Potassium 4.5 mmol/L (3.5-5.1) 11/16/18 00:18 Chloride 100 mmol/L (98-107) 11/16/18 00:18 Carbon Dioxide 28 mmol/L (21-32) 11/16/18 00:18 Anion Gap 7 MMOL/L (8-16) L 11/16/18 00:18 BUN 11.8 mg/dL (7-18) 11/16/18 00:18 Creatinine 1.1 mg/dL (0.55-1.3) 11/16/18 00:18 Random Glucose 90 mg/dL (74-106) 11/16/18 00:18 Calcium 9.1 mg/dL (8.5-10.1) 11/16/18 00:18 Total Bilirubin 1.3 mg/dL (0.2-1) H 11/16/18 00:18 AST 23 U/L (15-37) 11/16/18 00:18 ALT 41 U/L (13-61) 11/16/18 00:18 Alkaline Phosphatase 89 U/L (45-117) 11/16/18 00:18 Total Protein 7.8 g/dl (6.4-8.2) 11/16/18 00:18 Albumin 3.5 g/dl (3.4-5.0) 11/16/18 00:18 Current Medications Generic Name Dose Route Start Last Admin Trade Name Freq PRN Reason Stop Dose Admin Enoxaparin Sodium 40 mg 11/16/18 10:00 Lovenox - SQ DAILY OTILIO Ceftriaxone Sodium 1 gm/ 50 mls @ 100 mls/hr 11/16/18 12:00 Dextrose IVPB 11/16/18 12:29 ONCE ONE Sodium Chloride 1,000 mls @ 75 mls/hr 11/16/18 06:00 11/16/18 08:21 Normal Saline - IV 75 mls/hr ASDIR OTILIO Administration Home Medications Medication Instructions Recorded Sulfamethoxazole/Trimethoprim 1 each PO BID 10 Days #20 tablet 11/14/18 [Bactrim Ds Tablet] Urine Test Results Urine Color Yellow 11/16/18 11:00 Urine Appearance Clear 11/16/18 11:00 Urine pH 7.0 (5.0-8.0) 11/16/18 11:00 Ur Specific [place] 1.025 (1.010-1.035) 11/16/18 11:00 Urine Protein Negative (NEGATIVE) 11/16/18 11:00 Urine Glucose (UA) 1+ (NEGATIVE) H 11/16/18 11:00 Urine Ketones 2+ (NEGATIVE) H 11/16/18 11:00 Urine Blood Negative (NEGATIVE) 11/16/18 11:00 Urine Nitrite Negative (NEGATIVE) 11/16/18 11:00 Urine Bilirubin Negative (NEGATIVE) 11/16/18 11:00 Ur Leukocyte Esterase Trace (NEGATIVE) 11/16/18 11:00 Enoxaparin Sodium (Lovenox -) 40 mg SQ DAILY OTILIO Ceftriaxone Sodium 1 gm/ (Dextrose) 50 mls @ 100 mls/hr IVPB ONCE ONE Stop: 11/16/18 12:29 Sodium Chloride (Normal Saline -) 1,000 mls @ 75 mls/hr IV ASDIR OTILIO Last Admin: 11/16/18 08:21 Dose: 75 mls/hr CT abd&pelvis w/ contrast - suspected left pyelonephritis ASSESSMENT AND PLAN: Patient is a 18yo male with no significant PMHx was sent in by his PCP for admission for pyelonephritis. #Acute complicated UTI - On IV Rocephin , Urine cx pending , patient was diagnosed on 11/14, started on Bactrim and took one dose -CT abd&pelvis with contrast shows suspected left pyelnephritis -one dose of ceftriaxone given in ED, continue ceftriaxone -ID consulted, Dr. Mauro -will order GC/Chlamydia #Constipation - patient has not had BM since 11/10, bowel regimen DVT Px: Lovenox
[2018-11-16] MEDS: ENOXAPARIN NA (PORCINE) 40 MG/0.4 ML DISP.SYRIN SQ SCH (10:15)
[2018-11-16] MEDS ORDERED: CEFTRIAXONE 1 GM in DEXTROSE 5%-WATER - 50 ML IVPB ONE (12:00)
[2018-11-16 12:48] LABS: EPI CELLS 2.1 /HPF (0-5/HPF); HYALINE CASTS 0 /lpf (0-8); URINE APPEARANCE CLEAR; URINE BACTERIA 6.2 /hpf (NEGATIVE); URINE BILIRUBIN NEGATIVE (NEGATIVE); URINE COLOR YELLOW; URINE GLUCOSE (UA) 1+ (NEGATIVE); URINE KETONE 2+ (NEGATIVE); URINE LEUK ESTERASE TRACE (NEGATIVE); URINE NITRITE NEGATIVE (NEGATIVE); URINE PROTEIN NEGATIVE (NEGATIVE); URINE RBC 2 /hpf (0-4); URINE WBC 7 /hpf (0-5)
[2018-11-16] MEDS ORDERED: DEXTROSE 5%-WATER - 50 ML IVPB ONE (13:05)
[2018-11-16] MEDS ORDERED: ACETAMINOPHEN 325 MG TABLET (FP) PO PRN (13:30)
--- NOTE | 2018-11-16 15:24 | PN ---
Progress Note (short form) - Note Progress Note: ID consult dictated imp/reccd UTI ct scan with Left pyelonephritis constipation not sexually active no prior history of UTI continue rocephin continue IV hydration treat constipation will f/u cultures will need outpt urologic evaluation Problem List - Problems (1) UTI (urinary tract infection) Code(s): N39.0 - URINARY TRACT INFECTION, SITE NOT SPECIFIED Qualifiers: Urinary tract infection type: acute pyelonephritis Qualified Code(s): N10 - Acute pyelonephritis (2) Pyelonephritis of left kidney Code(s): N12 - TUBULO-INTERSTITIAL NEPHRITIS, NOT SPCF ACUTE OR CHRONIC (3) Constipation Code(s): K59.00 - CONSTIPATION, UNSPECIFIED
--- NOTE | 2018-11-16 17:27 | PN ---
Physical Exam: SUBJECTIVE: Patient seen and examined at the bedside, there were no acute events overnight. Patient febrile to 103.1 this afternoon, started on tylenol. OBJECTIVE: Vital Signs Period Temp Pulse Resp BP Sys/Roche Pulse Ox Last 24 Hr 98.6 F-103.1 F 89-107 18-20 107-118/54-76 95-98 GENERAL: The patient is awake, alert, and fully oriented, in no acute distress. HEAD: Normal with no signs of trauma. EYES: PERRL, extraocular movements intact, sclera anicteric, conjunctiva clear. ENT: Ears normal, oropharynx clear without exudates, moist mucous membranes. NECK: Trachea midline, full range of motion, supple. LUNGS: Breath sounds equal, clear to auscultation bilaterally, no wheezes, no crackles, no accessory muscle use. HEART: Regular rate and rhythm, S1, S2 without murmur, rub or gallop. ABDOMEN: Soft, nontender, nondistended, normoactive bowel sounds, no guarding, no rebound, no hepatosplenomegaly, no masses. EXTREMITIES: 2+ pulses, warm, well-perfused, no edema. NEUROLOGICAL: Cranial nerves II through XII grossly intact. Normal speech, gait not observed. PSYCH: Normal mood, normal affect. SKIN: Warm, dry, normal turgor, no rashes or lesions noted Laboratory Results - last 24 hr 11/16/18 11/16/18 11/16/18 00:18 00:18 07:55 WBC 11.0 H 7.9 RBC 4.34 4.35 Hgb 13.3 13.5 Hct 39.9 40.0 MCV 92.0 92.0 MCH 30.7 31.1 MCHC 33.4 33.8 RDW 12.1 11.9 Plt Count 306 294 MPV 7.3 L 7.5 Absolute Neuts (auto) 8.3 H Neutrophils % 75.2 Lymphocytes % 11.1 Monocytes % 12.7 H Eosinophils % 0.7 D Basophils % 0.3 Nucleated RBC % 0 Sodium 136 Potassium 4.5 Chloride 100 Carbon Dioxide 28 Anion Gap 7 L BUN 11.8 Creatinine 1.1 Est GFR (CKD-EPI)AfAm 111.41 Est GFR (CKD-EPI)NonAf 96.13 Random Glucose 90 Hemoglobin A1c % Lactic Acid Calcium 9.1 Total Bilirubin 1.3 H AST 23 ALT 41 Alkaline Phosphatase 89 Total Protein 7.8 Albumin 3.5 Lipase 73 Urine Color Urine Appearance Urine pH Ur Specific [place] Urine Protein Urine Glucose (UA) Urine Ketones Urine Blood Urine Nitrite Urine Bilirubin Urine Urobilinogen Ur Leukocyte Esterase Urine WBC (Auto) Urine RBC (Auto) Urine Casts (Auto) U Epithel Cells (Auto) Urine Bacteria (Auto) 11/16/18 11/16/18 11/16/18 07:55 07:55 11:00 WBC RBC Hgb Hct MCV MCH MCHC RDW Plt Count MPV Absolute Neuts (auto) Neutrophils % Lymphocytes % Monocytes % Eosinophils % Basophils % Nucleated RBC % Sodium Potassium Chloride Carbon Dioxide Anion Gap BUN Creatinine Est GFR (CKD-EPI)AfAm Est GFR (CKD-EPI)NonAf Random Glucose Hemoglobin A1c % 4.8 Lactic Acid 1.1 Calcium Total Bilirubin AST ALT Alkaline Phosphatase Total Protein Albumin Lipase Urine Color Yellow Urine Appearance Clear Urine pH 7.0 Ur Specific [place] 1.025 Urine Protein Negative Urine Glucose (UA) 1+ H Urine Ketones 2+ H Urine Blood Negative Urine Nitrite Negative Urine Bilirubin Negative Urine Urobilinogen 1.0 Ur Leukocyte Esterase Trace Urine WBC (Auto) 7 Urine RBC (Auto) 2 Urine Casts (Auto) 0 U Epithel Cells (Auto) 2.1 Urine Bacteria (Auto) 6.2 Active Medications Generic Name Dose Route Start Last Admin Trade Name Tyroneq PRN Reason Stop Dose Admin Acetaminophen 650 mg 11/16/18 13:30 Tylenol - PO Q6H PRN Fever Or Pain Enoxaparin Sodium 40 mg 11/16/18 10:00 11/16/18 10:15 Lovenox - SQ 40 mg DAILY OTILIO Administration Sodium Chloride 1,000 mls @ 100 mls/hr 11/16/18 13:31 Normal Saline - IV ASDIR OTILIO Ceftriaxone Sodium 2 gm/ 100 mls @ 200 mls/hr 11/17/18 10:00 Dextrose IVPB DAILY [facility] Protocol Imaging: CT abd&pelvis w/ contrast - suspected left pyelonephritis ASSESSMENT/PLAN: 18 y/o/m without any significant past sent in by his PCP for admission for pyelonephritis. No history of UTI. 1)Acute complicated UTI - patient diagnosed on 11/14, started on Bactrim and took one dose -CT abd&pelvis with contrast shows suspected left pyelnephritis - not sexually active, no history of UTI -ID consulted, Dr. Mauro, appreciate recommendations - continue rocephin - continue IV hydration - treat constipation - f/u cultures - f/u gonorrhea and chlamydia - increased fluids to 150cc/hr 2)Constipation - patient has not had BM since 11/10 -patient not complaining of abd pain currently -CT abd&pelvis on 11/14 showed mild ileus, CT abd&pelvis w/contrast today without evidence of SBO -monitor and consider laxatives 3)Prophylaxis -SCDs 4)FEN IVNS 150cc/h -oral hydration -regular diet 5)Dispo -admitted to med/surg, will need outpt urologic evaluation Visit type - Emergency Visit Emergency Visit: Yes ED Registration Date: 11/16/18 Care time: The patient presented to the Emergency Department on the above date and was hospitalized for further evaluation of their emergent condition. - New Patient This patient is new to me today: Yes Date on this admission: 11/16/18 - Critical Care Critical Care patient: No - Discharge Referral Referred to [facility] Med P.C.: No ATTENDING PHYSICIAN STATEMENT I saw and evaluated the patient. I reviewed the resident's note and discussed the case with the resident. I agree with the resident's findings and plan as documented. SUBJECTIVE: OBJECTIVE: ASSESSMENT AND PLAN:
[2018-11-16] MEDS: SODIUM CHLORIDE 1,000 ML IV SCH (21:01)
--- NOTE | 2018-11-16 23:09 | CONS ---
DATE OF CONSULTATION: 11/16/2018 This is a 18-year-old young man who on Tuesday developed some crampy abdominal pain. On Tuesday he went to see Dr. Bravo, who is his primary, who referred him to the ER where he reported they did nothing. On Tuesday he had recurrent abdominal pain. He went to the ER and had a CAT scan and was told that he had a UTI and given Bactrim. He took 1 dose of Bactrim. On , due to continued abdominal pain, he went back to the emergency room. He had a CAT scan done that showed a possible left-sided pyelonephritis, no stone, and constipation. He was admitted for IV antibiotics. PAST MEDICAL HISTORY: Unremarkable. ALLERGIES: No known drug allergies. He is ALLERGIC TO SHRIMP. MEDICATIONS: He does not take any medications regularly. SOCIAL HISTORY: He lives with his mother. There is no history of any cigarette or substance use. 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 REVIEW OF SYSTEMS: He denies vomiting, poor appetite. He has had fevers for the last several days. Never had a UTI before. He is not sexually active. He has had some nausea, but no vomiting. PHYSICAL EXAMINATION: Vital Signs: His temperature max was 103.1, temperature was 100.8 when I saw him. Pulse of 107, blood pressure 108/54, respiratory rate 18. General: His complaint is that he feels cold when he has fever. Interestingly, he denies abdominal pain. He has never had a UTI before. He is a young man, in no acute distress. HEENT: Normocephalic. Eyes are anicteric. Neck: Supple. Lungs: Clear to auscultation. Heart: Regular rate and rhythm. Abdomen: Soft, nontender. He has no CVA tenderness or suprapubic pain. Extremities: Without edema. LABORATORY: Notable for an admission white count of 11. It was 12.2 on November 14 when he came to the ER and today is 7. Hemoglobin 13.5, platelets are 294. Chemistries are notable for a BUN of 11, creatinine of 1.1. His total bilirubin is 1.3. The rest of his LFTs are normal. Urinalysis on the showed 3+ leukocyte esterase with 335 white cells. Urine culture from the is growing lactose many and Gram negative. Blood cultures are pending. As stated before, he has had 2 imaging studies, one on the and then again one on the . The CAT scan on the shows left pyelonephritis and constipation. IN SUMMARY: I would suggest at this time we treat him for UTI and left pyelonephritis with ceftriaxone. He is not antibiotic experienced and has no history of multidrug-resistant organisms. I would continue IV hydration and treat his constipation. He will need an outpatient urologist. Further recommendations to follow. Tadeo [id number]
[2018-11-17] MEDS: SODIUM CHLORIDE 1,000 ML IV SCH (07:27)
[2018-11-17] MEDS ORDERED: DOCUSATE SODIUM 100 MG CAPSULE (FP) PO PRN (09:03)
[2018-11-17 09:05] LABS: BASO % 0.6 % (0-2.0); EOS % 1.8 % (0-4.5); HEMATOCRIT 37.8 % (35.4-49); HEMOGLOBIN 12.7 GM/dL (11.7-16.9); LYMPH % 23.1 % (8-40); MCH 31.1 pg (25.7-33.7); MCHC 33.6 g/dl (32.0-35.9); MEAN CELL VOLUME 92.8 fl (80-96); MEAN PLT VOLUME 7.3 fl (7.5-11.1); MONO % 18.6 % (3.8-10.2); NEUT % 55.9 % (42.8-82.8); PLATELET COUNT 298 K/MM3 (134-434); RBC 4.07 M/mm3 (4.00-5.60); WHITE BLOOD COUNT 5.2 K/mm3 (4.0-10.0)
[2018-11-17 09:31] LABS: BILIRUBIN,TOTAL 1.4 mg/dL (0.2-1); BLOOD UREA NITROGEN 9.3 mg/dL (7-18); CALCIUM 8.6 mg/dL (8.5-10.1); CREATININE 0.9 mg/dL (0.55-1.3); POTASSIUM 4.4 mmol/L (3.5-5.1); TOT PROT 6.8 g/dl (6.4-8.2)
[2018-11-17] MEDS ORDERED: CEFTRIAXONE 2 GM in DEXTROSE 5%-WATER 100 ML IVPB SCH (10:00)
[2018-11-17] MEDS ORDERED: DEXTROSE 5%-WATER 100 ML IVPB ONE (11:39)
[2018-11-17] MEDS: ENOXAPARIN NA (PORCINE) 40 MG/0.4 ML DISP.SYRIN SQ SCH (11:43)
--- NOTE | 2018-11-17 14:44 | DS ---
Physical Exam: SUBJECTIVE: Patient seen and examined, there were no acute events. Patient is in bed, denies any pain or burning on urination. Tolerating a normal diet, passing gas. OBJECTIVE: Vital Signs Period Temp Pulse Resp BP Sys/Roche Pulse Ox Last 24 Hr 98.0 F-100.1 F 79-106 20-20 97-108/56-63 PHYSICAL EXAM GENERAL: The patient is awake, alert, and fully oriented, in no acute distress. HEAD: Normal with no signs of trauma. EYES: PERRL, extraocular movements intact, sclera anicteric, conjunctiva clear. ENT: Ears normal, oropharynx clear without exudates, moist mucous membranes. NECK: Trachea midline, full range of motion, supple. LUNGS: Breath sounds equal, clear to auscultation bilaterally, no wheezes, no crackles, no accessory muscle use. HEART: Regular rate and rhythm, S1, S2 without murmur, rub or gallop. ABDOMEN: Soft, nontender, nondistended, normoactive bowel sounds, no guarding, no rebound, no hepatosplenomegaly, no masses. EXTREMITIES: 2+ pulses, warm, well-perfused, no edema. NEUROLOGICAL: Cranial nerves II through XII grossly intact. Normal speech, gait not observed. PSYCH: Normal mood, normal affect. SKIN: Warm, dry, normal turgor, no rashes or lesions noted LABS Laboratory Results - last 24 hr 11/16/18 11/17/18 11/17/18 07:55 07:33 07:33 WBC 5.2 RBC 4.07 Hgb 12.7 Hct 37.8 MCV 92.8 MCH 31.1 MCHC 33.6 RDW 12.0 Plt Count 298 MPV 7.3 L Absolute Neuts (auto) 2.9 Neutrophils % 55.9 D Lymphocytes % 23.1 D Monocytes % 18.6 H Eosinophils % 1.8 D Basophils % 0.6 Nucleated RBC % 0 Sodium 138 Potassium 4.4 Chloride 104 Carbon Dioxide 29 Anion Gap 5 L BUN 9.3 Creatinine 0.9 Est GFR (CKD-EPI)AfAm 142.00 Est GFR (CKD-EPI)NonAf 122.52 Random Glucose 77 Hemoglobin A1c % 4.8 Calcium 8.6 Total Bilirubin 1.4 H AST 31 ALT 48 Alkaline Phosphatase 75 Total Protein 6.8 Albumin 3.0 L HOSPITAL COURSE: Date of Admission:11/16/18 The patient was admitted on Nov 16 for treatment of a complicated UTI. Prior to his hospitalization he was treated for 2 days with bactrim but did not improve. During his hospital stay, UA and Ucx were sent and the patient was empirically started on 2g of rocephin daily. The patient had a fever while hospitalized but this resolved with continuing antibiotic therapy and tylenol. Prior to discharge the patient was observed for 24H to make sure he remained afebrile. The patient also had an abdominal CT which showed evidence of L sided pyelo and a small cyst on the L upper pole of the kidney. The patient was discharged on ceftin 500mg BID for an additional 5 days. The patient was instructed to follow up with his PCP within the week and also follow up with urology to do further outpatient work up of why he may have gotten the UTI. Date of Discharge: 11/17/18 Minutes to complete discharge: 40 Discharge Summary Problems reviewed: Yes Reason For Visit: URINARY TRACT INFECTION Current Active Problems Constipation (Acute) Pyelonephritis of left kidney (Acute) UTI (urinary tract infection) (Acute) Condition: Improved - Instructions Diet, Activity, Other Instructions: You were in the hospital for treatment of a UTI. While here you had imaging of your abdomen which showed some constipation in addition to some inflammation of your left kidney. There was also a small cyst in the left kidney, however these can often be normal. We are discharging you home with plans to continue oral antibiotics. Please continue any home medications you take as prescribed with the following changes: - ADD Ceftin 500mg TWICE PER DAY for FIVE days and then STOP - ADDed a probiotic daily, we will prescribe one but you can find these over the counter at any grocery store or pharmacy Please follow up with the following doctors within 1 week of discharge from the hospital: Dr. Bravo, your primary care doctor, you can also discuss monitoring the kidney cyst with an ultrasound Dr. Solis, a urologist, to evaluate why you may have gotten a UTI also for follow up If you have burning when you urinate, or blood in your urine please return to the Emergency Department immediately. Referrals: Shiv Bravo MD [Primary Care Provider] - 1 Week Chiara Solis MD [Staff Physician] - 1 Week Disposition: HOME - Home Medications Comprehensive Discharge Medication List: Ambulatory Orders Cefuroxime Axetil [Ceftin -] 500 mg PO BID #10 tablet 11/17/18 This patient is new to me today: No Emergency Visit: Yes ED Registration Date: 11/16/18 Care time: The patient presented to the Emergency Department on the above date and was hospitalized for further evaluation of their emergent condition. Critical Care patient: No - Discharge Referral Referred to [facility] Med P.C.: No ATTENDING PHYSICIAN STATEMENT I saw and evaluated the patient. I reviewed the resident's note and discussed the case with the resident. I agree with the resident's findings and plan as documented. SUBJECTIVE: OBJECTIVE: ASSESSMENT AND PLAN:
[2018-11-17 14:49] VITALS: BP 102/74; PULSE 101; TEMP 99.8
--- NOTE | 2018-11-17 15:43 | PN ---
Teaching Attending Note Name of Resident: Ktity Severino ATTENDING PHYSICIAN STATEMENT I saw and evaluated the patient. I reviewed the resident's note and discussed the case with the resident. I agree with the resident's findings and plan as documented. SUBJECTIVE: Patient is comfortable, wants to go home. no fever overnight. OBJECTIVE: Vital Signs Temperature 99.8 F H 11/17/18 14:46 Pulse Rate 95 H 11/17/18 14:46 Respiratory Rate 20 11/17/18 14:46 Blood Pressure 102/74 11/17/18 14:46 O2 Sat by Pulse Oximetry (%) 96 11/16/18 10:30 GENERAL: The patient is awake, alert, and fully oriented, in no acute distress. HEAD: Normal with no signs of trauma. EYES: PERRL, extraocular movements intact, sclera anicteric, conjunctiva clear. ENT: Ears normal, oropharynx clear without exudates, moist mucous membranes. NECK: Trachea midline, full range of motion, supple. LUNGS: Breath sounds equal, clear to auscultation bilaterally, no wheezes, no crackles, no accessory muscle use. HEART: Regular rate and rhythm, S1, S2 without murmur, rub or gallop. ABDOMEN: Soft, NT,ND, normoactive bowel sounds, no guarding, no rebound, no hepatosplenomegaly, no masses. EXTREMITIES: 2+ pulses, warm, well-perfused, no edema. NEUROLOGICAL: Cranial nerves II through XII grossly intact. Normal speech, gait not observed. PSYCH: Normal mood, normal affect. SKIN: Warm, dry, normal turgor, no rashes or lesions noted CBCD WBC 5.2 K/mm3 (4.0-10.0) 11/17/18 07:33 RBC 4.07 M/mm3 (4.00-5.60) 11/17/18 07:33 Hgb 12.7 GM/dL (11.7-16.9) 11/17/18 07:33 Hct 37.8 % (35.4-49) 11/17/18 07:33 MCV 92.8 fl (80-96) 11/17/18 07:33 MCHC 33.6 g/dl (32.0-35.9) 11/17/18 07:33 RDW 12.0 % (11.9-15.9) 11/17/18 07:33 Plt Count 298 K/MM3 (134-434) 11/17/18 07:33 MPV 7.3 fl (7.5-11.1) L 11/17/18 07:33 CMP Sodium 138 mmol/L (136-145) 11/17/18 07:33 Potassium 4.4 mmol/L (3.5-5.1) 11/17/18 07:33 Chloride 104 mmol/L (98-107) 11/17/18 07:33 Carbon Dioxide 29 mmol/L (21-32) 11/17/18 07:33 Anion Gap 5 MMOL/L (8-16) L 11/17/18 07:33 BUN 9.3 mg/dL (7-18) 11/17/18 07:33 Creatinine 0.9 mg/dL (0.55-1.3) 11/17/18 07:33 Random Glucose 77 mg/dL (74-106) 11/17/18 07:33 Calcium 8.6 mg/dL (8.5-10.1) 11/17/18 07:33 Total Bilirubin 1.4 mg/dL (0.2-1) H 11/17/18 07:33 AST 31 U/L (15-37) 11/17/18 07:33 ALT 48 U/L (13-61) 11/17/18 07:33 Alkaline Phosphatase 75 U/L (45-117) 11/17/18 07:33 Total Protein 6.8 g/dl (6.4-8.2) 11/17/18 07:33 Albumin 3.0 g/dl (3.4-5.0) L 11/17/18 07:33 Home Medications Medication Instructions Recorded Cefuroxime Axetil [Ceftin -] 500 mg PO Q12H #20 tablet 11/17/18 Microbiology 11/16/18 11:00 Urine - Urine Clean Catch Urine Culture - Final NO GROWTH OBTAINED 11/16/18 03:35 Blood - Peripheral Venous Blood Culture - Preliminary NO GROWTH OBTAINED AFTER 24 HOURS, INCUBATION TO CONTINUE FOR 4 DAYS. 11/16/18 03:30 Blood - Peripheral Venous Blood Culture - Preliminary NO GROWTH OBTAINED AFTER 24 HOURS, INCUBATION TO CONTINUE FOR 4 DAYS. Microbiology 11/14/18 17:08 Urine - Urine Clean Catch Urine Culture - Final Escherichia Coli; Sensitive to everything CT abd&pelvis w/ contrast - suspected left pyelonephritis ASSESSMENT AND PLAN: Patient is a 18yo male with no significant PMHx was sent in by his PCP for admission for pyelonephritis. #Acute complicated UTI - s/p IV Rocephin received for 2 days, Urine cx from the 2018 , positive for E.Coli sensitive to everything -ID consulted, Dr. Mauro discussed with. -GC/Chlamydia ordered but was not done #Constipation - patient has not had BM since 11/10, bowel regimen dc patient home on 10 more days of ceftin , follow uo with urologist
--- NOTE | 2018-11-21 14:34 | PN ---
Problem List - Problems (1) UTI (urinary tract infection) Code(s): N39.0 - URINARY TRACT INFECTION, SITE NOT SPECIFIED Qualifiers: Urinary tract infection type: acute pyelonephritis Qualified Code(s): N10 - Acute pyelonephritis (2) Pyelonephritis of left kidney Code(s): N12 - TUBULO-INTERSTITIAL NEPHRITIS, NOT SPCF ACUTE OR CHRONIC (3) Constipation Code(s): K59.00 - CONSTIPATION, UNSPECIFIED
== END 2018-11-17 15:23 | disposition home or self-care (01) | DRG 463 ==
LOC: JER 22:05 → JERBED 11-16 01:37 → J5S 11-16 05:33
PROVIDERS: ADMIT Internal Medicine; ATTEND Internal Medicine
DX: N12 Tubulo-interstitial nephritis, not specified as acute or chronic (principal); K59.00 Constipation, unspecified; N39.0 Urinary tract infection, site not specified; B96.20 Unspecified Escherichia coli [E. coli] as the cause of diseases classified elsewhere
CPT/HCPCS: 36415; 74177-TC; 80053; 81003; 83036; 83605; 83690; 85025; 85027; 87040; 87086; 99285-25; J0131; J7030

== ENCOUNTER 2019-09-03 14:08 | Emergency (ER) | payer OTHER ==
[2019-09-03] MEDS ORDERED: IBUPROFEN 600 MG TABLET (FP) PO ONE (14:17)
[2019-09-03 14:18] VITALS: BP 115/77; PULSE 96; TEMP 98.6; BMI 34.4
--- NOTE | 2019-09-03 14:18 | PDOC ---
Rapid Medical Evaluation Chief Complaint: Pain Time Seen by Provider: 09/03/19 14:14 Medical Evaluation: Allergies Allergy/AdvReac Type Severity Reaction Status Date / Time No Known Allergies Allergy Verified 09/03/19 14:14 09/03/19 14:14 Pt presents for L leg pain for 4 days. Denies trauma or falling. Exam: TTP of the distal quadracepts muscle. (-) calf pain. Able to perform a straight leg raise. Orders: Razia Pt to proceed to the ER for further evaluation Discharge Disposition - Diagnosis Left leg pain - Referrals - Patient Instructions - Post Discharge Activity
--- NOTE | 2019-09-03 14:54 | PDOC ---
History of Present Illness - General Chief Complaint: Pain Stated Complaint: LT LEG PAIN Time Seen by Provider: 09/03/19 14:14 History Source: Patient Exam Limitations: No Limitations - History of Present Illness Initial Comments: 09/03/19 14:52 HISTORY OF PRESENT ILLNESS: 19-year-old male denies medical history presents emergency department for evaluation of atraumatic left thigh pain starting 2 days ago. 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 Patient reports prolonged standing and walking upstairs made the pain worse. Patient has not taken any analgesia prior to ER arrival. No recent travel or sick contacts. PAST MEDICAL HISTORY: Denies past medical history SURGICAL HISTORY: Denies ALLERGIES: No known drug allergies REVIEW OF SYSTEMS General/Constitutional: Denies fever or chills. Denies weakness, weight change. HEENT: Denies change in vision. Denies ear pain or discharge. Denies sore throat. Cardiovascular: Denies chest pain or shortness of breath. Respiratory: Denies cough, wheezing, or hemoptysis. Gastrointestinal: Denies nausea, vomiting, diarrhea or constipation. Denies rectal bleeding. Genitourinary: Denies dysuria, frequency, or change in urination. Musculoskeletal: See HPI Skin and breasts: Denies rash or easy bruising. Neurologic: Denies headache, vertigo, loss of consciousness, or loss of sensation. Psychiatric: Denies depression or anxiety. Endocrine: Denies increased thirst. Denies abnormal weight change. Hematologic/Lymphatic: Denies anemia, easy bleeding, or history of blood clots. Allergic/Immunologic: Denies hives or skin allergy. Denies latex allergy. PHYSICAL EXAM General Appearance: Well-appearing, appropriately dressed. No apparent distress, no intoxication. Vascular Pulses: Dorsalis-Pedis (R): 2+, Dorsalis-Pedis (L): 2+ Musculoskeletal/Extremities: Normal inspection. FROM of all extremities, normal capillary refill. Pelvis Stable. No CVA tenderness. No tenderness to extremities, pedal edema, swelling, erythema or deformity. Neurovascularly intact. Integumentary: Appropriate color, dry, warm. No cyanosis, erythema, jaundice or rash Past History - Medical History Allergies/Adverse Reactions: Allergies Allergy/AdvReac Type Severity Reaction Status Date / Time No Known Allergies Allergy Verified 09/03/19 14:14 Home Medications: Ambulatory Orders Cefuroxime Axetil [Ceftin -] 500 mg PO Q12H #20 tablet 11/17/18 COPD: No - Immunization History Immunization Up to Date: No - Psycho-Social/Smoking History Smoking History: Never smoked Have you smoked in the past 12 months: No Information on smoking cessation initiated: No - Substance Abuse Hx (Audit-C & DAST Scrn) How often the patient has a drink containing alcohol: Never Score: In Men: 4 or > Positive; In Women: 3 or > Positive: 0 Screen Result (Pos requires Nsg. Audit-10AR): Negative In the last yr the pt used illegal drug/Rx for NonMed reason: No Score: Yes response is considered Positive: 0 Screen Result (Positive result requires Nsg. DAST-10): Negative *Physical Exam - Vital Signs Last Vital Signs Temp Pulse Resp BP Pulse Ox 98.6 F 96 H 16 115/77 97 09/03/19 14:12 09/03/19 14:12 09/03/19 14:12 09/03/19 14:12 09/03/19 14:12 Medical Decision Making - Medical Decision Making 09/03/19 14:51 A/P: 19-year-old male with atraumatic left thigh pain for 2 days No bony tenderness, deformity, crepitus or step-off noted Increased pain with contraction of left quadriceps Ambulatory with steady gait Medication per RME Discharge home with orthopedic follow-up Discharge - Discharge Information Problems reviewed: Yes Clinical Impression/Diagnosis: Quadriceps muscle strain Qualifiers: Encounter type: initial encounter Laterality: left Qualified Code(s): S76.112A - Strain of left quadriceps muscle, fascia and tendon, initial encounter Condition: Stable Disposition: HOME - Admission No - Follow up/Referral Referrals: Stephen Bravo MD [Primary Care Provider] - Miky Alcala DO [Staff Physician] - - Patient Discharge Instructions Additional Instructions: [email or web address] You be given a referral for an orthopedist. Call to schedule appointment for reevaluation of your pain. Your emergency department visit is incomplete until you follow-up with your regular doctor. Take Tylenol 2-500 mg tablets every 6 hours as needed for pain. Take Motrin 3-200 mg tablets every 6 hours as needed for pain. These medications do not require a prescription as they are [id number]. Apply ice to affected areas to help relieve pain. Do not leave ice on for more than 20 minutes at a time. Return to the emergency department for any new or worsening symptoms. Thank you very much for choosing us to provide your emergent health care needs. - Post Discharge Activity Work/Back to School Note: Back to Work
== END 2019-09-03 15:28 | disposition home or self-care (01) ==
LOC: JERFT 14:08
DX: S76.112A Strain of left quadriceps muscle, fascia and tendon, initial encounter (principal)
CPT/HCPCS: 99283-25